=== PATIENT | female | born 1955 | race African-American/Black ===

== ENCOUNTER 2016-12-22 17:24 | Emergency (ER) | payer OTHER ==
[~2016-12-22] VITALS: Ht 160 cm; Wt 94.8 kg
[~2016-12-22 17:24] MED LIST: ATENOLOL50 MG PO; GABAPENTIN300 MG PO; HYDROCHLOROTHIA25 MG PO; LISINOPRIL30 MG PO; LOW DOSE ASPIRI81 M1 PO; METHADONE10 MG PO; METHIMAZOLE10 MG PO; OXYCODONE HCL10 MG PO; TRAZODONE HCL50 MG PO
[2016-12-22] MEDS ORDERED: IBUPROFEN800 MG PO (20:20)
[2016-12-22 21:02] VITALS: BP 187/97
== END 2016-12-22 21:03 | disposition home or self-care (01) ==
LOC: EME 17:24
DX: S83.92XA Sprain of unspecified site of left knee, initial encounter (principal); M17.12 Unilateral primary osteoarthritis, left knee; X50.9XXA Other and unspecified overexertion or strenuous movements or postures, initial encounter; Y93.01 Activity, walking, marching and hiking; Y92.89 Other specified places as the place of occurrence of the external cause; I10 Essential (primary) hypertension; Z87.891 Personal history of nicotine dependence
CPT/HCPCS: 73564; 99281; 99284